=== PATIENT | female | born 2005 | race Caucasian/White ===

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

== ENCOUNTER 2025-08-03 09:04 | Outpatient (REF) | payer OTHER, SELFPAY ==
[2025-08-03 14:18] LABS: MANUAL DIFF FLAG NO
[2025-08-03 14:28] LABS: Hematocrit 39.5 % (37.0-47.0); Hemoglobin 13.4 g/dl (12.0-16.0); Imm Gran Abs Auto 0.03 X10*3/uL (0.00-0.03); Imm Gran Pct Auto 0.4 % (0.0-0.4); Lymphocytes Absolute Auto 2.9 X10*3/uL (1.2-4.9); Mean Corpuscular HGB Conc 33.9 g/dl (31.0-35.0); Mean Corpuscular Hemoglobin 29.3 pg (27.0-33.0); Mean Corpuscular Volume 86.4 fL (80.0-98.0); NRBC Abs Auto 0.000 X10*3/uL (0.0-0.012); NRBC Pct Auto 0.0 /100WBC (0.0-0.2); Platelet Count 208 X10*3/uL (160-400); Red Blood Count 4.57 X10*6/uL (4.20-5.50); White Blood Count 7.7 X10*3/uL (4.8-10.8)
[2025-08-03 15:08] LABS: Alanine Aminotransferase 20 U/L (0-31); Albumin Level 4.5 g/dL (3.5-5.0); Alkaline Phosphatase 74 U/L (39-117); Anion Gap 11 (12-20); Aspartate Amino Transferase 21 U/L (5-31); Blood Urea Nitrogen 13 mg/dL (9-16); Calcium 9.5 mg/dL (8.4-10.2); Carbon Dioxide 28 mmol/L (22-29); Chloride 107 mmol/L (96-108); Cholesterol 169 mg/dL (<200); Estimated Glomerular Filt Rate > 60; HDL Cholesterol 60 mg/dL (>40); Potassium 4.1 mmol/L (3.3-5.1); Sodium 142 mmol/L (135-145); Total Protein 7.6 g/dL (6.5-8.0); Triglycerides 45 mg/dL (<150)
[2025-08-03 15:26] LABS: Folate 8.5 ng/mL (> or = 4.0); Vitamin B12 533 pg/mL (200-900)
[2025-08-03 16:13] LABS: Hemoglobin A1C 114.3236 umol/L
[2025-08-10 11:48] LABS: Anti Nuclear Antibody Screen NEGATIVE (NEGATIVE)
== END 2025-08-03 09:05 | disposition home or self-care (01) ==
LOC: HO.WFDLDS 09:04
PROVIDERS: PCP Physician Assistant; Visit Provider Physician Assistant
DX: R73.01 Impaired fasting glucose (principal); L30.9 Dermatitis, unspecified; F41.9 Anxiety disorder, unspecified; F32.A Depression, unspecified
CPT/HCPCS: 36415; 80053; 80061; 82607; 82746; 83036; 84443; 85025; 86038; 86039; 96127; 99202

== ENCOUNTER 2025-08-03 09:04 | Outpatient (AMB) | payer OTHER, SELFPAY ==
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
[2025-08-03 09:08] VITALS: BP 108/74; PULSE 88; RESP 12; TEMP 36.8; O2SAT 98; BMI 33.6
== END 2025-08-03 09:37 | disposition home or self-care (01) ==
LOC: HO.HMCFM 09:05
PROVIDERS: PCP Physician Assistant; Visit Provider Physician Assistant
DX: L30.9 Dermatitis, unspecified (principal); F41.9 Anxiety disorder, unspecified; F32.A Depression, unspecified